=== PATIENT | male | born 1965 | race African-American/Black ===

== ENCOUNTER 2016-07-22 20:13 | Inpatient (IN) | payer OTHER ==
[~2016-07-22] VITALS: Ht 182.9 cm; Wt 81.6 kg
[~2016-07-22 20:13] MED LIST: AMLODIPINE BESY1 T23 PO; AMLODIPINE-ATO1 EA10 PO; AMOXICILLIN875 M1 PO; AUGMENTIN 875-1 EACH PO; BENTYL20 M1 PO; BENTYL20 MG PO; DOCUSATE SODIU100 MG PO; ENDOCET 325 MG-1 TA1 PO; GLUCOPHAGE1000 M1 PO; GLYBURIDE5 M1 PO; INVOKANA300 M1 PO; LISINOPRIL20 M1 PO; MIRALAX119 GM PO; OMEPRAZOLE20 M2 PO; PERCOCET 325 MG1 TA2 PO; PERCOCET 5-3251 EACH PO; SENNA8.6 M3 PO; ULTRAM50 M1 PO; VITAMIN E400 IU PO; ZOFRAN ODT4 MG PO; ZOFRAN ODT4 MG SL; ZOFRAN4 M2 SL
--- NOTE | 2016-07-22 20:51 | NUR ---
PT TO ED C/O SHARP ABD PIAN THAT IS MID AND ON LEFT SIDE OF ABD. PMH OF GALL BLADDER REMOVAL AND PANCREATITIS. STATES ATE A SANDWHICH WITH JALOPENOS 4-5 DAYS AND PAIN STARTED THEM. HAS NOT VOMITTED IN 3-4 DAYS, DENIES NAUSEA AT THIS TIME. DENIES UTI S/S
--- NOTE | 2016-07-22 22:03 | ED GI/GU/ABDOMINAL COMPLAINT ---
History of Present Illness General Chief Complaint: General Adult Stated Complaint: PT HAS STOMACH PAINS Source: patient Exam Limitations: no limitations Vital Signs & Intake/Output Vital Signs & Intake/Output Vital Signs Date Time Temp Pulse Resp B/P Pulse O2 O2 Flow FiO2 Ox Delivery Rate 07/22 2320 97.4 82 18 176/88 95 Room Air 07/22 2051 158/84 07/22 2045 97.0 88 18 170/105 98 Room Air ED Intake and Output 07/23 0000 07/22 1200 Intake Total 1000 Output Total Balance 1000 Intake, IV 1000 Patient 210 lb Weight Allergies Coded Allergies: ibuprofen (HURTS STOMACH 07/22/16) Reconcile Medications Amlodipine/Atorvastatin (Amlodipine-Atorvast 10-40 MG) 1 EACH TABLET 1 TAB PO DAILY BP/CHOLESTEROL (Reported) Canagliflozin (Invokana) (Unknown Strength) TABLET (Unknown Dose) PO DAILY UNKNOWN (Reported) Glyburide 5 MG TABLET 1 TAB PO DAILY DM (Reported) Lisinopril 20 MG TABLET 1 TAB PO DAILY blood pressure (Reported) Metformin HCl (Glucophage) 1,000 MG TABLET 1 TAB PO BID DM (Reported) Vitamin E Mixed (Vitamin E) (Unknown Strength) CAPSULE (Unknown Dose) PO DAILY SUPPLEMENT (Reported) Triage Note: PT TO ED C/O SHARP ABD PIAN THAT IS MID AND ON LEFT SIDE OF ABD. PMH OF GALL BLADDER REMOVAL AND PANCREATITIS. STATES ATE A SANDWHICH WITH JALOPENOS 4-5 DAYS AND PAIN STARTED THEM. HAS NOT VOMITTED IN 3-4 DAYS, DENIES NAUSEA AT THIS TIME. DENIES UTI S/S Triage Nurses Notes Reviewed? yes Duration: day(s):, waxing and waning Timing: recent history Quality/Severity: burning, cramping Location: epigastric Radiation: no radiation Activities at Onset: none Prior Abdominal Problems: similar symptoms Modifying Factors: Worsens With: palpation. Associated Symptoms: abdominal pain, nausea/vomiting HPI: 51yo gentleman with mid and left lateral abdominal pain x 5 days. He notes that the discomfort began after eating jalapeno and steak sandwich. He notes loose stool mild nausea, no vomiting. He notes that he does not drink alcohol. He notes this feels similar to a prior episode of pancreatitis. He is otherwise well has no chest pain shortness of breath fever chills dyspnea. Past History Travel History Traveled to [place] past 21 day No Medical History Any Pertinent Medical History? see below for history Neurological: NONE EENT: NONE Cardiovascular: hypertension, hyperlipidemia Respiratory: NONE Gastrointestinal: pancreatitis Hepatic: cholecystitis, hepatitis C Renal: NONE Musculoskeletal: NONE Psychiatric: NONE Endocrine: diabetes Blood Disorders: NONE Cancer(s): NONE FIELD REVIEWER/Reproductive: NONE History of MRSA: No History of VRE: No History of CDIFF: No Surgical History Surgical History: cholecystectomy Psychosocial History Who do you live with Spouse Services at Home None What is your primary language Dominican Tobacco Use: Current Daily Use Daily Tobacco Use Amount/Type: => 5 Cigarettes daily ETOH Use: denies use Illicit Drug Use: denies illicit drug use Family History Family History, If Any: MOTHER FH: diabetes mellitus FH: myocardial infarction FHx: brain cancer BROTHER FH: myocardial infarction Hx Contributory? No Review of Systems Review of Systems Constitutional: Reports: no symptoms. EENTM: Reports: no symptoms. Respiratory: Reports: no symptoms. Cardiovascular: Reports: no symptoms. GI: Reports: no symptoms. Genitourinary: Reports: no symptoms. Musculoskeletal: Reports: no symptoms. Skin: Reports: no symptoms. Neurological/Psychological: Reports: no symptoms. Hematologic/Endocrine: Reports: no symptoms. Immunologic/Allergic: Reports: no symptoms. All Other Systems: Reviewed and Negative Physical Exam Physical Exam General Appearance: well developed/nourished, mild distress Head: atraumatic, normal appearance, active bleeding Eyes: Bilateral: normal appearance. Ears, Nose, Throat, Mouth: hearing grossly normal Neck: normal inspection, supple, full range of motion Respiratory: normal breath sounds, chest non-tender, no respiratory distress, quiet respiration, lungs clear Cardiovascular: regular rate/rhythm Gastrointestinal: normal bowel sounds, soft, MILD MID EPIGASTRIC AND LEFT LATERAL TENDERNESS TO PALPATION. nO REBOUND OR GUARDING. Extremities: normal range of motion Neurologic/Psych: no motor/sensory deficits, awake, alert, oriented x 3 Skin: intact, normal color, warm/dry Core Measures ACS in differential dx? No Severe Sepsis Present: No Septic Shock Present: No Progress Differential Diagnosis: PANCREATITIS VERSUS GASTROENTERITIS VERSUS REFLUX VERSUS DIVERTICULITIS VERSUS OTHER Plan of Care: Orders Procedure Date/time Status Clear Liquid Diet 07/23 B Active HEPATIC FUNCTION PANEL 07/23 06 Active BASIC ELECTROLYTES PLUS BUN&CR 07/23 06 Active EKG 07/23 06 Active URINE DRUGS OF ABUSE 07/23 0205 Active ED Holding Orders 07/23 0120 Active Admit to inpatient 07/23 0120 Active Pathway - chart 07/23 0100 Active Pathway - chart 07/23 0059 Active House Staff 07/23 005 Active Patient Data 07/23 005 Active Code Status 07/23 0059 Active VTE Mechanical Prophylaxis 07/23 UNK Active Patient Data 07/22 2341 Active Add-on Test (ER Only) 07/22 2314 Active ETHANOL 07/22 221 Complete TROPONIN LEVEL 07/22 2115 Complete LIPASE 07/22 2115 Complete HEPATIC FUNCTION PANEL 07/22 2115 Complete CBC WITHOUT DIFFERENTIAL 07/22 2115 Complete BASIC METABOLIC PANEL 07/22 2115 Complete AMYLASE 07/22 2115 Complete EKG 07/22 2115 Active Current Medications Sig/Ross Start time Last Medication Dose Stop Time Status Admin Atorvastatin Calcium 40 MG 1700 07/23 1700 UNVr (Lipitor) Amlodipine Besylate 10 MG DAILY 07/23 1000 UNVr (Norvasc) Enoxaparin Sodium 40 MG DAILY 07/23 1000 UNVr (Lovenox) Lisinopril 20 MG DAILY 07/23 1000 UNVr (Prinivil) Pantoprazole Sodium 40 MG DAILY 07/23 1000 UNVr (Protonix) Sodium Chloride 1,000 ML ONCE ONE 07/23 0215 AC (Normal Saline 0.9%) 07/23 1214 Acetaminophen 650 MG Q6P PRN 07/23 0100 AC (Tylenol) Oxycodone HCl 10 MG Q6P PRN 07/23 0100 AC (Roxicodone) Oxycodone/ 1 TAB Q6P PRN 07/23 0100 AC Acetaminophen (Percocet) Laboratory Tests 07/22/165: Anion Gap 11, Estimated GFR > 60, BUN/Creatinine Ratio 11.4, Glucose 123 H, Calcium 9.5, Total Bilirubin 0.4, Direct Bilirubin 0.4, AST 32, ALT 61, Alkaline Phosphatase 65, Troponin I < 0.01, Total Protein 7.5, Albumin 4.3, Amylase 181 H, Lipase 1074 H, CBC w Diff NO MAN DIFF REQ, RBC 5.52, MCV 86.0, MCH 28.5, RDW 12.6, MPV 8.5, Gran % 45.9, Lymphocytes % 46.4, Monocytes % 5.0, Eosinophils % 2.3, Basophils % 0.4, Absolute Granulocytes 4.3, Absolute Lymphocytes 4.3 H, Absolute Monocytes 0.5, Absolute Eosinophils 0.2, Absolute Basophils 0, PUBS MCHC 33.2, Serum Alcohol < 10.0 Diagnostic Imaging: Viewed by Me: CT Scan. Discussed w/RAD: CT Scan. Radiology Impression: ABDOMEN AND PELVIC cat SCAN- NO ACUTE ILLNESS. fULL REPORT BELOW Initial ED EKG: normal axis, normal intervals, normal p-waves, normal QRS complex, normal sinus rhythm Comments: PATIENT: JEREMY STRANGE PRESENT AGE: 51 PATIENT ACCOUNT NO: [id number] : 64 LOCATION: [facility] ORDERING PHYSICIAN: PAVEL STILES MD SERVICE DATE: 07/22/16 EXAM TYPE: CAT - CT ABD & PELVIS W/O IV CONTRAS EXAMINATION: CT ABDOMEN AND PELVIS WITHOUT CONTRAST CLINICAL INFORMATION: Left lateral mid epigastric pain. Concern for diverticulitis COMPARISON: CT scan abdomen pelvis 11/08/2015 TECHNIQUE: Multidetector volumetric imaging was performed from the superior aspect of the liver through the pubic symphysis. Sagittal and coronal reformatted images were obtained on the technologist's workstation. No oral or intravenous contrast. DLP: 386.13 mGy-cm FINDINGS: LUNG BASES: The visualized lung bases are unremarkable. LIVER, GALLBLADDER, AND BILIARY TREE: The liver is normal in size, shape, and attenuation. No focal hepatic lesion or biliary ductal dilatation is present. Status post cholecystectomy. Extrahepatic CBD measures 5 mm. No calcified stone within the ducts. PANCREAS: Unremarkable. SPLEEN: Unremarkable. ADRENAL GLANDS: Unremarkable. KIDNEYS AND URETERS: The kidneys are normal in size, shape, and attenuation. No hydronephrosis, hydroureter, or calculi seen. No perinephric stranding. BLADDER: Unremarkable. GASTROINTESTINAL TRACT: No acute change. No diverticula. No diverticulitis. No bowel wall thickening or edema. No bowel obstruction. Moderate volume of stool in the colon. The appendix is normal. The small bowel loops are normal. ABDOMINAL WALL: No significant hernia is appreciated. LYMPH NODES: Normal. VASCULAR: Unremarkable. PELVIC VISCERA: Prostate measures 4.9 cm transverse with small calcifications in the prostate. OSSEOUS STRUCTURES: Unremarkable. IMPRESSION: Normal CT scan abdomen pelvis. DICTATED BY: KESHA VAUGHAN MD DATE/TIME DICTATED:07/22/162232 MASTER COOK:RENY DATE/TIME TRANSCRIBED:07/22/162232 CONFIDENTIAL, DO NOT COPY WITHOUT APPROPRIATE AUTHORIZATION. <Electronically signed in Other Vendor System> SIGNED BY: KESHA VAUGHAN MD 07/22/168 Departure Departure Disposition: STILL A PATIENT Condition: Stable Clinical Impression Primary Impression: Pancreatitis Referrals: KUSUM KAPADIA MD (PCP/Family) Departure Forms: Customer Survey General Discharge Information Admission Note Spoke With: MARTINEZ RAMIREZ,DAVID Ashton Documentation of Exam: Documentation of any treatments & extenuating circumstances including Concerns Regarding Discharge (functional status, medication knowledge or non-compliance, living conditions, etc.) that warrant an admission rather than observation: PT WITH PANCREATITIS LIKELY OF MEDICAL ORIGIN. NO SIGN OF GALLSTONE PANCREATITIS, BENIGN LFT'S... .PT MERITS IV FLUIDS, IV PAIN MEDS, BOWEL REST, WOULD CONSIDER GI CONSULT.
[2016-07-22 22:27] LABS: ABSOLUTE BASOPHIL COUNT 0 /CUMM (0.0-0.2); ABSOLUTE EOSINOPHIL COUNT 0.2 /CUMM (0.0-0.7); ABSOLUTE GRANULOCYTE CT 4.3 /CUMM (1.4-6.5); ABSOLUTE MONOCYTE COUNT 0.5 /CUMM (0.10-0.60); BASOPHIL % 0.4 % (0.0-2.0); EOSINOPHIL % 2.3 % (0-5); GRANULOCYTE % 45.9 % (42.2-75.2); HEMATOCRIT 47.5 % (42-52); MEAN CORPUSCULAR HGB 28.5 PG (27.0-31.0); MEAN CORPUSCULAR HGB CONC 33.2 G/DL (33.0-37.0); MEAN PLATELET VOLUME 8.5 FL (7.4-10.4); PLATELET COUNT 205 /CUMM (130-400); RBC DISTRIBUTION WIDTH 12.6 % (11.5-14.5); RED BLOOD CELL CT 5.52 /CUMM (4.70-6.10); WHITE BLOOD CELL COUNT 9.3 /CUMM (4.8-10.8)
[2016-07-22 22:28] LABS: ABSOLUTE LYMPH COUNT 4.3 /CUMM (1.2-3.4)
[2016-07-22] MEDS ORDERED: VITAMIN E400 UNIT PO (22:37)
--- NOTE | 2016-07-22 22:41 | CT SCAN REPORT ---
EXAMINATION: CT ABDOMEN AND PELVIS WITHOUT CONTRAST CLINICAL INFORMATION: Left lateral mid epigastric pain. Concern for diverticulitis COMPARISON: CT scan abdomen pelvis 11/08/2015 TECHNIQUE: Multidetector volumetric imaging was performed from the superior aspect of the liver through the pubic symphysis. Sagittal and coronal reformatted images were obtained on the technologist's workstation. No oral or intravenous contrast. DLP: 386.13 mGy-cm FINDINGS: LUNG BASES: The visualized lung bases are unremarkable. LIVER, GALLBLADDER, AND BILIARY TREE: The liver is normal in size, shape, and attenuation. No focal hepatic lesion or biliary ductal dilatation is present. Status post cholecystectomy. Extrahepatic CBD measures 5 mm. No calcified stone within the ducts. PANCREAS: Unremarkable. SPLEEN: Unremarkable. ADRENAL GLANDS: Unremarkable. KIDNEYS AND URETERS: The kidneys are normal in size, shape, and attenuation. No hydronephrosis, hydroureter, or calculi seen. No perinephric stranding. BLADDER: Unremarkable. GASTROINTESTINAL TRACT: No acute change. No diverticula. No diverticulitis. No bowel wall thickening or edema. No bowel obstruction. Moderate volume of stool in the colon. The appendix is normal. The small bowel loops are normal. ABDOMINAL WALL: No significant hernia is appreciated. LYMPH NODES: Normal. VASCULAR: Unremarkable. PELVIC VISCERA: Prostate measures 4.9 cm transverse with small calcifications in the prostate. OSSEOUS STRUCTURES: Unremarkable. IMPRESSION: Normal CT scan abdomen pelvis.
--- NOTE | 2016-07-22 22:49 | NUR ---
SEEN BY ER IV MED LOCK EST RIGHT F/A 20 B/W SENT PATIENT TAKEN TO CT SCAN PATIENT RETURNED FROM CT IV 1000 ML NS AT BOLUS GIVEN; ZOFRAN 4 MG IVP GIVEN PROTONIX 40 MG IVP EKG PREFORMED GIVEN GI COCKTAIL PO
--- NOTE | 2016-07-22 23:25 | NUR ---
RE-EVAL BY ER MD MEDICATED W/ MORPHINE 4 MG IVP FOR PAIN
--- NOTE | 2016-07-22 23:49 | History & Physical ---
General Information and HPI Allergies/Medications Allergies: Coded Allergies: ibuprofen (HURTS STOMACH 07/22/16) Home Med list Amlodipine/Atorvastatin (Amlodipine-Atorvast 10-40 MG) 1 EACH TABLET 1 TAB PO DAILY BP/CHOLESTEROL (Reported) Canagliflozin (Invokana) (Unknown Strength) TABLET (Unknown Dose) PO DAILY UNKNOWN (Reported) Glyburide 5 MG TABLET 1 TAB PO DAILY DM (Reported) Lisinopril 20 MG TABLET 1 TAB PO DAILY blood pressure (Reported) Metformin HCl (Glucophage) 1,000 MG TABLET 1 TAB PO BID DM (Reported) Vitamin E Mixed (Vitamin E) (Unknown Strength) CAPSULE (Unknown Dose) PO DAILY SUPPLEMENT (Reported) Past History Travel History Traveled to [place] past 21 day No Medical History Neurological: NONE EENT: NONE Cardiovascular: hypertension, hyperlipidemia Respiratory: NONE Gastrointestinal: pancreatitis Hepatic: cholecystitis, hepatitis C Renal: NONE Musculoskeletal: NONE Psychiatric: NONE Endocrine: diabetes Blood Disorders: NONE Cancer(s): NONE MANAGER PARKING/Reproductive: NONE History of MRSA: No History of VRE: No History of CDIFF: No Surgical History Surgical History: cholecystectomy Past Family/Social History Family History Relations & Conditions if any MOTHER FH: diabetes mellitus FH: myocardial infarction FHx: brain cancer BROTHER FH: myocardial infarction Psychosocial History Services at Home: None ETOH Use: denies use Illicit Drug Use: denies illicit drug use Functional Ability ADLs Independent: dressing, eating, toileting, bathing. Ambulation: independent IADLs Independent: shopping, housework, finances, food prep, telephone, transportation , medication admin. Core Measures/Miscellaneous Severe Sepsis Severe Sepsis Present: No Septic Shock Septic Shock Present: No
--- NOTE | 2016-07-22 23:53 | NUR ---
SECOND LITER NS INFUSING ORDERED. PT REQUESTS TO STAY IN STREET CLOTHES AT THIS TIME
--- NOTE | 2016-07-23 02:20 | History & Physical ---
ESTEPHANIA LEE 07/23/16 0220: General Information and HPI MD Statement: I have seen and personally examined JEREMY STRANGE and documented this H&P. The patient is a 51 year old M who presented with a patient stated chief complaint of [substernal, abdominal pain and diarrhea]. Source of Information: patient Exam Limitations: no limitations History of Present Illness: Mr Strange is a 51-year-old Cambodian gentleman with a PMH of HTN, DM, HLD, hep C (untreated) who presents with complaints of 5 day duration epigastric and substernal discomfort. Symptoms started on Monday after he had a sandwich containing jalapeno peppers which he normally does not eat. A few hours after he reported severe burning discomfort in his substernal, epigastric and left upper abdomen regions. These symptoms persisted throughout the week despite self medication with Xanax, Maalox and increased amounts of fluid. He also reported associated loose bowel movements but denies any blood/tarry colored stools. He does report worsening abdominal discomfort with laying to his left side. ROS: Mild intermittent nausea. Denies fevers, chills, chest pain, palpitations, shortness of breath or cough. Patient does endorse daily tobacco use (6-7 cigarettes), frequent marijuana use. He denies any alcohol use in multiple years. Allergies/Medications Allergies: Coded Allergies: ibuprofen (HURTS STOMACH 07/22/16) Home Med list Amlodipine/Atorvastatin (Amlodipine-Atorvast 10-40 MG) 1 EACH TABLET 1 TAB PO DAILY BP/CHOLESTEROL (Reported) Canagliflozin (Invokana) (Unknown Strength) TABLET (Unknown Dose) PO DAILY UNKNOWN (Reported) Glyburide 5 MG TABLET 1 TAB PO DAILY DM (Reported) Lisinopril 20 MG TABLET 1 TAB PO DAILY blood pressure (Reported) Metformin HCl (Glucophage) 1,000 MG TABLET 1 TAB PO BID DM (Reported) Vitamin E Mixed (Vitamin E) (Unknown Strength) CAPSULE (Unknown Dose) PO DAILY SUPPLEMENT (Reported) Past History Travel History Traveled to [place] past 21 day No Medical History Neurological: NONE EENT: NONE Cardiovascular: hypertension, hyperlipidemia Respiratory: NONE Gastrointestinal: pancreatitis Hepatic: cholecystitis, hepatitis C Renal: NONE Musculoskeletal: NONE Psychiatric: NONE Endocrine: diabetes Blood Disorders: NONE Cancer(s): NONE COMMUNITY SUPPORT PROFESSIONAL/Reproductive: NONE History of MRSA: No History of VRE: No History of CDIFF: No Surgical History Surgical History: cholecystectomy Past Family/Social History Family History Relations & Conditions if any MOTHER FH: diabetes mellitus FH: myocardial infarction FHx: brain cancer BROTHER FH: myocardial infarction Psychosocial History Services at Home: None ETOH Use: denies use Illicit Drug Use: denies illicit drug use Functional Ability ADLs Independent: dressing, eating, toileting, bathing. Ambulation: independent IADLs Independent: shopping, housework, finances, food prep, telephone, transportation , medication admin. Review of Systems Review of Systems Constitutional: Reports: see HPI. EENTM: Reports: no symptoms. Cardiovascular: Reports: no symptoms. Respiratory: Reports: no symptoms. GI: Reports: see HPI. Genitourinary: Reports: no symptoms. Musculoskeletal: Reports: no symptoms. Exam & Diagnostic Data Last 24 Hrs of Vital Signs/I&O Vital Signs Date Time Temp Pulse Resp B/P Pulse O2 O2 Flow FiO2 Ox Delivery Rate 07/23 0318 98.1 88 18 180/94 07/23 0233 98.1 88 18 180/94 96 Room Air 07/22 2320 97.4 82 18 176/88 95 Room Air 07/22 2052 158/84 07/22 2046 97.0 88 18 170/105 98 Room Air Intake & Output 07/23 0800 07/23 0000 07/22 1600 Intake Total 1000 1000 Output Total Balance 1000 1000 Intake, IV 1000 1000 Patient 210 lb Weight Physical Exam General Appearance Alert, Cooperative, Mild abdominal disacomfort with movement in the bed Skin No Breakdown HEENT EOMI, Mucous Membr. moist/pink Neck Supple Lymphatic Cervical nl Cardiovascular Regular Rate, Normal S1, Normal S2 Lungs Normal Air Movement, Dimnished breath sounds in the basilar regions Abdomen Soft, Tenderness to palpation of the epigastric and LLQ Neurological Normal Speech, Normal Tone Extremities No Edema, Normal Pulses Vascular Pulses Symmetrical Last 24 Hrs of Labs/Geraldo: Laboratory Tests 07/22/165: Anion Gap 11, Estimated GFR > 60, BUN/Creatinine Ratio 11.4, Glucose 123 H, Calcium 9.5, Total Bilirubin 0.4, Direct Bilirubin 0.4, AST 32, ALT 61, Alkaline Phosphatase 65, Troponin I < 0.01, Total Protein 7.5, Albumin 4.3, Amylase 181 H, Lipase 1074 H, CBC w Diff NO MAN DIFF REQ, RBC 5.52, MCV 86.0, MCH 28.5, RDW 12.6, MPV 8.5, Gran % 45.9, Lymphocytes % 46.4, Monocytes % 5.0, Eosinophils % 2.3, Basophils % 0.4, Absolute Granulocytes 4.3, Absolute Lymphocytes 4.3 H, Absolute Monocytes 0.5, Absolute Eosinophils 0.2, Absolute Basophils 0, PUBS MCHC 33.2, Serum Alcohol < 10.0 Diagnostic Data EKG Results Sinus rhythm, HR 80 bpm. Consider left ventricular hypertrophy. QTC 443. GA interval 144 Assessment/Plan Assessment: 51-year-old Camb[place]ian gentleman with a PMH of HTN, DM, HLD, hep C (untreated), status post cholecystectomy who presents with complaints of 5 day duration epigastric and substernal burning discomfort that started 5 days ago after eating a sandwich containing jalapeno peppers. Symptoms persisted throughout the week despite supplementation with Xanax and Maalox. VS on admission: BP 1 7105, HR 80, RR 18, SPO2 98% on RA, T 97.0 Pertinent labs: CBC 9.3, H&H 15.7/47.5, platelets 205, sodium 137, potassium 3.9 , BUN/CR 8/0.7, glucose 123 Amylase: 181 Lipase: 1074 Serum alcohol: <10.0 Lactic acid: Pending CT abdomen pelvis: Normal CT scan abdomen pelvis. Problem list: 1. Abdominal discomfort: DDX gastritis, pancreatitis 2. Hypertension 3. Diabetes 4. History of untreated hep C 5. Hyperlipidemia 6. Tobacco dependence 7. Marijuana use 8. EKG pulse Plan: * Admit to general medicine * We'll start the patient on fluid resuscitation with normal saline at 100 mL an hour, Clear liquids and advance as tolerated. Trending lactic acid * IV PPI for GI prophylaxis * If recurrence of loose stools, send off for stool studies * Elevated blood pressure likely secondary to abdominal pain and fluid resuscitation. Amlodipine for BP control * Repeat EKG in the a.m. in the setting of short pause on admission EKG * Percocets for analgesia * Diet: Advance to consistent, history * Low-dose insulin sliding scale. Accu-Cheks * Follow-up lipid panel in the a.m * Nicotine patch as needed for tobacco dependence * DVT prophylaxis: Lovenox * CODE STATUS: Full code Patient was previously scheduled to follow-up with Dr. Gonzalez as an outpatient to establish treatment for hep C. Please provide referral prior to discharge As Ranked By This Provider Problem List: 1. Abdominal pain 2. Pancreatitis 3. Hypertension 4. Hyperlipidemia 5. Hepatitis C 6. Diabetes mellitus 7. Tobacco dependence Core Measures/Miscellaneous Acute Coronary Syndrome ACS Diagnosis: No Cerebrovascular Accident CVA/TIA Diagnosis: No Congestive Heart Failure CHF Diagnosis: No Venous Thromboembolism VTE Risk Factors: Age > 40 VTE Prophylaxis Ordered Inpt: Pharm- Lovenox No Mech VTE prophylaxis d/t: No contraindications No VTE Pharm Prophylaxis d/t: No contraindications VTE Diagnosis: No VTE Type: NONE VTE Confirmed by (Test): NONE Severe Sepsis Severe Sepsis Present: No Septic Shock Septic Shock Present: No Miscellaneous Documentation Attending Case Discussed With: KUSUM KAPADIA MD Primary Care Physician: KUSUM KAPADIA MD Patient sees these Specialists NA Level of Patient Care: General Medicine Resident Review Statement Resident Statement: examined this patient, discussed with actuarial intern, agreed with actuarial intern, reviewed EMR data (avail), discussed with nursing, reviewed images MARTINEZ RAMIREZ,[facility] 07/23/16 1158: Attending MD Review Statement Attending Statement Attending MD Statement: examined this patient, discuss w/resident/PA/DOUBLE BASS PLAYER, agreed w/resident/PA/DOUBLE BASS PLAYER, discussed with family, reviewed EMR data (avail), discussed with nursing, discussed with case mgmt, reviewed images, amended to note Attending Assessment/Plan: Seen and examined independently This is a gentleman with history of hypertension, diabetes, hep C, previous cholecystectomy, previous history of pancreatitis comes in with significant abdominal pain and discomfort. 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 difficile and culture Control blood pressure Follow-up with EKG Minimize narcotics Start aggressive bowel regimen Reduce nicotine to 14 mg If his pain improves we will discharge him tomorrow Check his blood work and amylase lipase tomorrow Patient appears euvolemic Patient would require treatment for hep C and evaluation for cirrhosis
--- NOTE | 2016-07-23 02:36 | NUR ---
PT EVALUATED BY HOUSE STAFF PT MEDICATED WITH 10 MG ROXICODONE FOR ABD PAIN 01/12. THIRD LITER NS INFUSING AT 100 ML/HR
--- NOTE | 2016-07-23 03:26 | NUR ---
REPORT GIVEN TO ARMANDO CALL
[2016-07-23 04:05] VITALS: BP 166/109; BP 166/90
[2016-07-23 07:52] VITALS: BP 130/72
--- NOTE | 2016-07-23 11:58 | Admission Certification ---
Admission Certification Certification Statement - As attending physician, I certify that at the time of - admission, based on clinical presentation, severity of - symptoms, need for further diagnostic testing and - therapeutic interventions, and risk of adverse outcomes - without in-hospital treatment, in my clinical assessment, - this patient requires an acute hospital stay for a minimum - of two nights or longer. I have also considered psychsocial - factors such as support system, advanced age, financial - issues, cognitive issues, and failed out-patient treatments, - past re-admission history, safety of patient, and lack of - compliance as applicable. Specific rationale supporting this admission is: SIg pancreatitis
[2016-07-23 15:53] VITALS: BP 142/82
[2016-07-24 00:07] VITALS: BP 150/94
[2016-07-24 08:04] VITALS: BP 140/88
[2016-07-24 08:43] LABS: ABSOLUTE BASOPHIL COUNT 0 /CUMM (0.0-0.2); ABSOLUTE EOSINOPHIL COUNT 0.2 /CUMM (0.0-0.7); ABSOLUTE GRANULOCYTE CT 1.7 /CUMM (1.4-6.5); ABSOLUTE LYMPH COUNT 2.7 /CUMM (1.2-3.4); ABSOLUTE MONOCYTE COUNT 0.2 /CUMM (0.10-0.60); BASOPHIL % 0.3 % (0.0-2.0); EOSINOPHIL % 3.2 % (0-5); GRANULOCYTE % 35.4 % (42.2-75.2); MEAN CORPUSCULAR HGB 28.4 PG (27.0-31.0); MEAN CORPUSCULAR HGB CONC 33.4 G/DL (33.0-37.0); MEAN CORPUSCULAR VOLUME 85.2 FL (80.0-94.0); MEAN PLATELET VOLUME 8.6 FL (7.4-10.4); PLATELET COUNT 182 /CUMM (130-400); RBC DISTRIBUTION WIDTH 12.6 % (11.5-14.5); RED BLOOD CELL CT 5.51 /CUMM (4.70-6.10); WHITE BLOOD CELL COUNT 4.8 /CUMM (4.8-10.8)
--- NOTE | 2016-07-24 09:37 | PN- Housestaff ---
Subjective Follow-up For: ABDOMINAL PAIN Subjective: Patient is seen and examined at bedside. She reports an overnight episode of nausea and vomiting (denies bloody vomitus) after dinner. Patient had just finished breakfast today when he was examined and he did not report any nausea vomiting today. Whenever he still endorses moderate abdominal pain which he localizes it around the epigastric area. Patient denies any melena, hematemesis , chest pain, palpitation, shortness of breath, fever, chills or dysuria. Review of Systems Constitutional: Reports: see HPI. Objective Last 24 Hrs of Vital Signs/I&O Vital Signs Date Time Temp Pulse Resp B/P Pulse O2 O2 Flow FiO2 Ox Delivery Rate 07/24 0916 83 140/88 07/24 0915 83 140/88 07/24 0804 97.9 83 20 140/88 95 Room Air 07/24 0007 97.6 74 20 150/94 97 Room Air 07/23 1553 97.8 70 20 142/82 97 Intake & Output 07/24 1600 07/24 0800 07/24 0000 Intake Total 120 240 Output Total Balance 120 240 Intake, Oral 120 240 Physical Exam General Appearance: Alert, Oriented X3, Cooperative Other Physical Findings: General Appearance Alert, Cooperative, Mild abdominal disacomfort with movement in the bed Skin No Breakdown HEENT EOMI, Mucous Membr. moist/pink Neck Supple Lymphatic Cervical nl Cardiovascular Regular Rate, Normal S1, Normal S2 Lungs Normal Air Movement, Dimnished breath sounds in the basilar regions Abdomen Soft, Tenderness to palpation of the epigastric and LLQ. No rebound tenderness noted. Neurological Normal Speech, Normal Tone Extremities No Edema, Normal Pulses Vascular Pulses Symmetrical Assessment/Plan Assessment: This is a 51-year-old [place] gentleman with a PMH of HTN, DM, HLD, hep C ( untreated), status post cholecystectomy who presents with complaints of 5 day duratinon of epigastric and substernal burning discomfort that started after eating a sandwich containing jalapeno peppers. Symptoms persisted throughout the week despite supplementation with Xanax and Maalox. VS on admission: BP 1 7105, HR 80, RR 18, SPO2 98% on RA, T 97.0 Pertinent labs: CBC 9.3, H&H 15.7/47.5, platelets 205, sodium 137, potassium 3.9 , BUN/CR 8/0.7, glucose 123 Amylase: 181 Lipase: 1074 Serum alcohol: <10.0 Lactic acid: Pending CT abdomen pelvis: Normal CT scan abdomen pelvis. Patient was then admitted for evaluation and management of possible gastritis versus pancreatitis. Problem list: 1. Abdominal discomfort: DDX gastritis, pancreatitis. However CT is unremarkable for any pancreatic etiology and his enzymes have significantly trended down. 2. Hypertension 3. Diabetes 4. History of untreated hep C 5. Hyperlipidemia 6. Tobacco dependence 7. Marijuana use 8. EKG pulse Plan: * Will continue patient on clear liquids and not advance diet as patient had episodes of vomiting last night. If patient continues to have episodes of vomiting or increased epigastric pain. Will obtain GI consult valuation of possible GI ulcers. * Will continue IV PPI for GI prophylaxis * Percocets for analgesia, will avoid NSAIDs * Low-dose insulin sliding scale. Accu-Cheks * continue 14 mg nicotine patch * Blood pressure currently controlled continue lisinopril and amlodipine * Patient needs outpatient evaluation for his history of hep C which was not treated, patient would definitely benefit from treatment such as HARVONI. We'll encourage patient to follow-up with Dr. Gonzalez as he was supposed to see him prior to this admission. Problem List: 1. Abdominal pain 2. Tobacco dependence Pain Ratin Pain Location: Epigastric and left lower quadrant Pain Goal: Remain pain free Pain Plan: Per pain pathway Tomorrow's Labs & Rationales: none
--- NOTE | 2016-07-24 11:15 | PN- Pulmonary ---
Subjective HPI/Critical Care Issues: Patient is seen and examined at bedside. he reports an overnight episode of nausea and vomiting (denies bloody vomitus) after dinner. Patient had breakfast today Whenever he still endorses moderate abdominal pain which he localizes it around the epigastric area. Patient denies any melena, hematemesis, chest pain, palpitation, shortness of breath, fever, chills or dysuria. Review of Systems Constitutional: Reports: see HPI. Objective Current Medications: Current Medications Sig/Ross Start time Last Medication Dose Route Stop Time Status Admin Acetaminophen 650 MG Q6P PRN 07/23 0100 AC PO Amlodipine Besylate 10 MG DAILY 07/23 0315 AC 07/24 PO 0915 Atorvastatin Calcium 40 MG 1700 07/23 1700 AC 07/23 PO 1734 Docusate Sodium 100 MG DAILY NEEDED PRN 07/23 1330 AC PO Enoxaparin Sodium 40 MG DAILY 07/23 1000 AC 07/24 SC 0913 Insulin Aspart 0 TIDAC 07/23 0800 07/24 SC 0838 Lisinopril 20 MG DAILY 07/23 1000 AC 07/24 PO 0916 Nicotine 14 MG DAILY 07/24 1000 AC 07/24 TOP 0921 Nicotine 21 MG DAILY 07/23 1000 DC 07/23 TOP 0933 Ondansetron HCl 4 MG ONCE ONE 07/23 2015 DC 07/23 IV 07/23 2016 2049 Oxycodone HCl 10 MG Q6P PRN 07/23 0100 AC 07/23 PO 2126 Oxycodone/ 1 TAB Q6P PRN 07/23 0100 07/23 Acetaminophen PO 1536 Pantoprazole Sodium 40 MG DAILY 07/23 1000 AC 07/24 IV 0910 Polyethylene Glycol 17 GM DAILY 07/23 1320 AC 07/24 PO 0916 Senna 187 MG AT BEDTIME 07/23 2200 AC 07/23 PO 2126 Sodium Chloride 1,000 ML ONCE ONE 07/23 0215 DC 07/23 IV 07/23 1214 0232 Laboratory Tests 07/24 07/23 07/23 0725 1342 0645 Chemistry Sodium (137 - 145 mmol/L) 137 137 Potassium (3.5 - 5.1 mmol/L) 4.1 4.1 Chloride (98 - 107 mmol/L) 101 102 Carbon Dioxide (22 - 30 mmol/L) 25 27 Anion Gap (5 - 16) 11 7 BUN (9 - 20 mg/dL) 7 L 5 L Creatinine (0.7 - 1.2 mg/dL) 0.6 L 0.7 Estimated GFR (>60 ml/min) > 60 > 60 BUN/Creatinine Ratio (7 - 25 %) 11.7 7.1 Total Bilirubin (0.2 - 1.3 mg/dL) 0.5 Direct Bilirubin (< 0.4 mg/dL) 0.4 AST (17 - 59 U/L) 54 ALT (21 - 72 U/L) 69 Alkaline Phosphatase (< 127 U/L) 53 Total Protein (6.3 - 8.2 g/dL) 6.2 L Albumin (3.5 - 5.0 g/dL) 3.4 L Triglycerides (<150 mg/dL) 127 Cholesterol (< 200 MG/DL) 62 LDL Cholesterol, Calc (65 - 129 mg/dL) 5 L HDL Cholesterol (40 - 60 mg/dL) 32 L Cholesterol/HDL Ratio (0.00 - 4.88 %) 2 Amylase (30 - 110 U/L) 95 Lipase (23 - 300 U/L) 116 Hematology CBC w Diff NO MAN DIFF REQ WBC (4.8 - 10.8 /CUMM) 4.8 RBC (4.70 - 6.10 /CUMM) 5.51 Hgb (14.0 - 18.0 G/DL) 15.7 Hct (42 - 52 %) 47.0 MCV (80.0 - 94.0 FL) 85.2 MCH (27.0 - 31.0 PG) 28.4 RDW (11.5 - 14.5 %) 12.6 Plt Count (130 - 400 /CUMM) 182 MPV (7.4 - 10.4 FL) 8.6 Gran % (42.2 - 75.2 %) 35.4 L Lymphocytes % (20.5 - 51.1 %) 56.5 H Monocytes % (1.7 - 9.3 %) 4.6 Eosinophils % (0 - 5 %) 3.2 Basophils % (0.0 - 2.0 %) 0.3 Absolute Granulocytes (1.4 - 6.5 /CUMM) 1.7 Absolute Lymphocytes (1.2 - 3.4 /CUMM) 2.7 Absolute Monocytes (0.10 - 0.60 /CUMM) 0.2 Absolute Eosinophils (0.0 - 0.7 /CUMM) 0.2 Absolute Basophils (0.0 - 0.2 /CUMM) 0 PUBS MCHC (33.0 - 37.0 G/DL) 33.4 Toxicology Urine Opiates Screen (>2000 NG/ML) 1463.00 Methadone Screen (>300 NG/ML) < 40 Barbiturate Screen (>200 NG/ML) < 60 Ur Phencyclidine Scrn (>25 NG/ML) < 6.00 Amphetamines Screen (>1000 NG/ML) < 100 U Benzodiazepines Scrn (>200 NG/ML) < 85 Urine Cocaine Screen (>300 NG/ML) < 50 Urine Cannabis Screen (>50 NG/ML) > 80.00 H 07/23 07/22 0420 2215 Chemistry Sodium (137 - 145 mmol/L) 137 Potassium (3.5 - 5.1 mmol/L) 3.9 Chloride (98 - 107 mmol/L) 99 Carbon Dioxide (22 - 30 mmol/L) 27 Anion Gap (5 - 16) 11 BUN (9 - 20 mg/dL) 8 L Creatinine (0.7 - 1.2 mg/dL) 0.7 Estimated GFR (>60 ml/min) > 60 BUN/Creatinine Ratio (7 - 25 %) 11.4 Glucose (65 - 99 mg/dL) 123 H Lactic Acid (0.7 - 2.1 mmol/L) 0.6 L Calcium (8.4 - 10.2 mg/dL) 9.5 Total Bilirubin (0.2 - 1.3 mg/dL) 0.4 Direct Bilirubin (< 0.4 mg/dL) 0.4 AST (17 - 59 U/L) 32 ALT (21 - 72 U/L) 61 Alkaline Phosphatase (< 127 U/L) 65 Troponin I (<0.11 ng/ml) < 0.01 Total Protein (6.3 - 8.2 g/dL) 7.5 Albumin (3.5 - 5.0 g/dL) 4.3 Amylase (30 - 110 U/L) 181 H Lipase (23 - 300 U/L) 1074 H Hematology CBC w Diff NO MAN DIFF REQ WBC (4.8 - 10.8 /CUMM) 9.3 RBC (4.70 - 6.10 /CUMM) 5.52 Hgb (14.0 - 18.0 G/DL) 15.7 Hct (42 - 52 %) 47.5 MCV (80.0 - 94.0 FL) 86.0 MCH (27.0 - 31.0 PG) 28.5 RDW (11.5 - 14.5 %) 12.6 Plt Count (130 - 400 /CUMM) 205 MPV (7.4 - 10.4 FL) 8.5 Gran % (42.2 - 75.2 %) 45.9 Lymphocytes % (20.5 - 51.1 %) 46.4 Monocytes % (1.7 - 9.3 %) 5.0 Eosinophils % (0 - 5 %) 2.3 Basophils % (0.0 - 2.0 %) 0.4 Absolute Granulocytes (1.4 - 6.5 /CUMM) 4.3 Absolute Lymphocytes (1.2 - 3.4 /CUMM) 4.3 H Absolute Monocytes (0.10 - 0.60 /CUMM) 0.5 Absolute Eosinophils (0.0 - 0.7 /CUMM) 0.2 Absolute Basophils (0.0 - 0.2 /CUMM) 0 PUBS MCHC (33.0 - 37.0 G/DL) 33.2 Toxicology Serum Alcohol (<10 MG/DL) < 10.0 Microbiology Date/Time Procedure - Status Source Growth 07/23 1313 Clostridium difficile Toxin A & B - COLB STOOL 07/23 1313 Stool Culture - COLB STOOL Vital Signs & I&O Last 24 Hrs of Vitals and I&O: Vital Signs Date Time Temp Pulse Resp B/P Pulse O2 O2 Flow FiO2 Ox Delivery Rate 07/24 0916 83 140/88 07/24 0915 83 140/88 07/24 0804 97.9 83 20 140/88 95 Room Air 07/24 0007 97.6 74 20 150/94 97 Room Air 07/23 1553 97.8 70 20 142/82 97 Intake & Output 07/24 1600 07/24 0800 07/24 0000 Intake Total 120 240 Output Total Balance 120 240 Intake, Oral 120 240 Impression/Plan Impression/Plan Impression/Plan: This is a gentleman with history of hypertension, diabetes, hep C, previous cholecystectomy, previous history of pancreatitis comes in with significant abdominal pain and discomfort. 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 difficile and culture if he has persistant diarrhea Control blood pressure Minimize narcotics Start aggressive bowel regimen Reduce nicotine to 14 mg If his pain improves we will discharge him tomorrow if not call GI Patient would require treatment for hep C and evaluation for cirrhosis
[2016-07-24 15:48] VITALS: BP 142/80
[2016-07-24 23:25] VITALS: BP 140/98
--- NOTE | 2016-07-25 07:06 | PN- Housestaff ---
Subjective Follow-up For: abdominal pain, nausea, vomiting Subjective: I saw and examined the patient this AM, he is alert and oriented in no distress, does not reports any abdominal pain or nausea/vomiting, has not had any bowel movement yet since admission, feels constipated and bloated. denies chest pain, palpitation, SOB. Review of Systems Constitutional: Denies: chills, fever, weakness. EENTM: Reports: no symptoms. Cardiovascular: Reports: no symptoms. Respiratory: Reports: no symptoms. Gastrointestinal: Reports: bloating, constipation. Denies: abdominal pain (discomfort +), diarrhea, melena, nausea, vomiting. Genitourinary: Reports: no symptoms. Musculoskeletal: Reports: no symptoms. Skin: Reports: no symptoms. Objective Last 24 Hrs of Vital Signs/I&O Vital Signs Date Time Temp Pulse Resp B/P Pulse O2 O2 Flow FiO2 Ox Delivery Rate 07/25 1051 78 186/92 07/25 1050 78 186/92 07/25 0817 97.6 83 20 142/80 96 Room Air 07/24 2325 20.0 74 20 140/98 97 07/24 1548 97.8 86 19 142/80 98 Intake & Output 07/25 1600 07/25 0800 07/25 0000 Intake Total 400 Output Total 1600 Balance -1200 Intake, Oral 400 Output, Urine 1600 Physical Exam General Appearance: Alert, Oriented X3, Cooperative, No Acute Distress Skin: No Rashes, No Significant Lesion HEENT: Atraumatic, EOMI Neck: Supple Cardiovascular: Regular Rate, Normal S1, Normal S2, No Murmurs Lungs: Clear to Auscultation, Normal Air Movement Abdomen: Normal Bowel Sounds, Soft, No Tenderness Neurological: Normal Speech, Normal Tone Extremities: No Clubbing, No Cyanosis, No Edema, Normal Pulses, No Tenderness/ Swelling Vascular: Pulses Symmetrical Current Medications: Current Medications Sig/Ross Start time Last Medication Dose Route Stop Time Status Admin Acetaminophen 650 MG Q6P PRN 07/23 0100 AC PO Amlodipine Besylate 10 MG DAILY 07/23 0315 AC 07/25 PO 1050 Atorvastatin Calcium 40 MG 1700 07/23 1700 AC 07/24 PO 1655 Bisacodyl 10 MG ONCE ONE 07/25 1145 UNVr ND 07/25 1146 Docusate Sodium 100 MG DAILY NEEDED PRN 07/23 1330 AC 07/25 PO 1059 Enoxaparin Sodium 40 MG DAILY 07/23 1000 AC 07/25 SC 1051 Insulin Aspart 0 TIDAC 07/23 0800 AC 07/24 SC 1211 Lisinopril 20 MG DAILY 07/23 1000 AC 07/25 PO 1051 Nicotine 14 MG DAILY 07/24 1000 AC 07/25 TOP 1051 Oxycodone HCl 10 MG Q6P PRN 07/23 0100 AC 07/23 PO 2126 Oxycodone/ 1 TAB Q6P PRN 07/23 0100 AC 07/24 Acetaminophen PO 1951 Pantoprazole Sodium 40 MG BID 07/24 2200 AC 07/25 IV 1051 Pantoprazole Sodium 40 MG DAILY 07/23 1000 DC 07/24 IV 0910 Polyethylene Glycol 17 GM DAILY 07/23 1320 AC 07/25 PO 1051 Senna 187 MG AT BEDTIME 07/23 2200 AC 07/24 PO 2259 Assessment/Plan Assessment: This is a 51-year-old [place] gentleman with a PMH of HTN, DM, HLD, hep C ( untreated), status post cholecystectomy who presents with complaints of 5 day duratinon of epigastric and substernal burning discomfort that started after eating a sandwich containing jalapeno peppers. Symptoms persisted throughout the week despite supplementation with Xanax and Maalox. VS on admission: BP 1 7105, HR 80, RR 18, SPO2 98% on RA, T 97.0 Pertinent labs: CBC 9.3, H&H 15.7/47.5, platelets 205, sodium 137, potassium 3.9 , BUN/CR 8/0.7, glucose 123 Amylase: 181 Lipase: 1074 Serum alcohol: <10.0 Lactic acid: Pending CT abdomen pelvis: Normal CT scan abdomen pelvis. Patient was then admitted for evaluation and management of possible gastritis versus pancreatitis. Problem list: 1. Abdominal discomfort: possibly due to gastritis and mild acute pancreatitis. However CT is unremarkable for any pancreatic etiology and his enzymes have significantly trended down. 2. Hypertension 3. Diabetes 4. History of untreated hep C 5. Hyperlipidemia 6. Tobacco dependence 7. Marijuana use Plan: * We advanced his diet to regular (CC2) and he has been tolerating well. * Will continue PPI for GI prophylaxis, switched to PO * Tylenol for pain, will avoid NSAIDs * Low-dose insulin sliding scale. Accu-Cheks * Continue 14 mg nicotine patch * Blood pressure currently controlled continue lisinopril and amlodipine * Patient needs outpatient evaluation for his history of hep C which was not treated, patient would definitely benefit from treatment such as HARVONI. We'll encourage patient to follow-up with Dr. Gonzalez as he was supposed to see him prior to this admission. * Added Suppository Dulcolax to bowel regimen, due to constipation, advised the patient to take enough fluids, high fiber diet, daily exercise. Problem List: 1. Pancreatitis 2. Hepatitis C 3. Hyperlipidemia Pain Ratin Pain Location: no pain Pain Goal: Pain 4 or less Pain Plan: mild pp Tomorrow's Labs & Rationales: none
[2016-07-25 08:17] VITALS: BP 142/80
[2016-07-25 10:51] VITALS: BP 186/92
[2016-07-25] MEDS ORDERED: OMEPRAZOLE40 M1 PO (13:12)
--- NOTE | 2016-07-25 13:17 | Patient Discharge Instructions ---
Discharge Instructions General Discharge Information You were seen/treated for: mild acute pancreatitis possible gastritis Special Instructions: Please follow up with Dr. Gonzalez within a week of dicharge regading treatment plans for hepatitis C virus. Please follow up with PCP within 1-2 weeks of discharge. Diet Recommended Diet: Diabetic Activity Activity Self Limited: Yes Acute Coronary Syndrome Inclusion Criteria At DC or during hospital stay patient has or had the following: ACS DIAGNOSIS No Discharge Core Measures Meds if any: Prescribed or Continued at Discharge Meds if any: NOT Prescribed or Continued at Discharge Congestive Heart Failure Inclusion Criteria At DC or during hospital stay patient has or had the following: CHF DIAGNOSIS No Discharge Core Measures Meds if any: Prescribed or Continued at Discharge Meds if any: NOT Prescribed or Continued at Discharge Cerebrovascular accident Inclusion Criteria At DC or during hospital stay patient has or had the following: CVA/TIA Diagnosis No Discharge Core Measures Meds if any: Prescribed or Continued at Discharge Meds if any: NOT Prescribed or Continued at Discharge Venous thromboembolism Inclusion Criteria VTE Diagnosis No VTE Type NONE VTE Confirmed by (Test) NONE Discharge Core Measures - Per Current guidelines, there needs to be overlap - treatment for the first 5 days of Warfarin therapy. - If discharged on Warfarin prior to 5 days of - overlap therapy, the patient will need to be - assessed for post discharge needs including - *Post discharge parental anticoagulation - *Warfarin and/or parental anticoagulation education - *Follow up date to check INR post discharge At least 5 days overlap therapy as Inpatient No Meds if any: Prescribed or Continued at Discharge Note: Overlap Therapy is Warfarin and Anticoagulant Meds if any: NOT Prescribed or Continued at Discharge
--- NOTE | 2016-07-25 13:19 | Discharge Summary ---
See Addendum Visit Information Visit Dates Admission Date: 07/23/16 Discharge Date: 07/25/16 Hospital Course Course Attending Physician: KUSUM KAPADIA MD Primary Care Physician: KANG RAMIREZ,KUSUM Hospital Course: 51-year-old [place] gentleman with a PMH of HTN, DM, HLD, hep C (untreated), status post cholecystectomy who presents with complaints of 5 day duration epigastric and substernal burning discomfort that started 5 days ago after eating a sandwich containing jalapeno peppers. Symptoms persisted throughout the week despite supplementation with Xanax and Maalox. VS on admission: BP 1 7105, HR 80, RR 18, SPO2 98% on RA, T 97.0 Pertinent labs: CBC 9.3, H&H 15.7/47.5, platelets 205, sodium 137, potassium 3.9 , BUN/CR 8/0.7, glucose 123 Amylase: 181 Lipase: 1074 Serum alcohol: <10.0 Lactic acid: Pending CT abdomen pelvis: Normal CT scan abdomen pelvis. Problem list: Problem list: 1. Abdominal discomfort: DDX gastritis, pancreatitis 2. Hypertension 3. Diabetes 4. History of untreated hep C 5. Hyperlipidemia 6. Tobacco dependence 7. Marijuana use 8. EKG pause Hospital course: 1. Abdominal discomfort: DDX gastritis, pancreatitis * Unremarkable CT abdomen and pelvis * Gradually advance diet, fluid hydration with normal saline, GI prophylaxis with IV Protonix which was transitioned to by mouth prior to discharge * Analgesia with Percocets 2. Hypertension * Continue the patient's home dose of amlodipine for BP control 3. Diabetes * Held glyburide and metformin. Low-dose sliding scale with good sugar control 4. History of untreated hep C * Recommendations provided to the patient to follow-up with Dr. Gonzalez once discharged 5. Hyperlipidemia * Triglycerides 127, cholesterol 62, LDL 5, HDL 32 6. Tobacco dependence * Nicotine patch for control 7. Marijuana use * Advised against continued substance abuse Allergies: Coded Allergies: ibuprofen (HURTS STOMACH 07/22/16) Disposition Summary Disposition Principal Diagnosis: Acute pancreatitis/gastritis Additional Diagnosis: Elevated blood pressure Discharge Disposition: home or self care Discharge Instructions General Discharge Information Code Status: Full Code Patient's Diet: Consistent carbohydrate Patient's Activity: As tolerated Follow-Up Instructions/Appts: Please follow-up with the PCP within one week after discharge. Please follow-up with the locomotive observer Dr. Gonzalez within 1 week after discharge. Please take all medications as directed. Medications at Discharge Discharge Medications: Continue taking these medications: Metformin HCl (Glucophage) 1,000 MG TABLET 1 Tablet ORAL TWICE DAILY Comments: PER PT Glyburide (Glyburide) 5 MG TABLET 1 Tablet ORAL DAILY Comments: PER PT Lisinopril (Lisinopril) 20 MG TABLET 1 Tablet ORAL DAILY Comments: Last Taken: 11/15/15 Time: 10 AM Canagliflozin (Invokana) (Unknown Strength) TABLET Unknown Dose ORAL DAILY Comments: PER PT CANT AFFORD Amlodipine/Atorvastatin (Amlodipine-Atorvast 10-40 MG) 1 EACH TABLET 1 Tablet ORAL DAILY Qty = 30 Comments: Last Taken: 11/15/15 Time: 10 AM Vitamin E Mixed (Vitamin E) (Unknown Strength) CAPSULE Unknown Dose ORAL DAILY Comments: PER PT Start taking the following new medications: Omeprazole (Omeprazole) 40 MG CAPSULE.DR 1 Capsule ORAL DAILY Qty = 30 No Refills Acetaminophen (Acetaminophen) 500 MG TABLET 1 Tablet ORAL EVERY SIX HOURS as needed for pain Qty = 30 No Refills Copies To: JACKELIN KAPADIA MD, MD,GORDON
[2016-07-25] MEDS ORDERED: ACETAMINOPHEN500 M4 PO (15:49)
== END 2016-07-25 15:45 | DRG 440 ==
LOC: ENRESERVDT → ENRESERVTM → ERH 20:13 → ENPENDDIS 07-23 01:20 → 2NB 07-23 01:20 → ERHI 07-23 01:20 → 2NB 07-23 03:33
PROVIDERS: Internal Medicine; Ophthalmology; Pediatrics; ADMIT Internal Medicine
DX: K85.90 Acute pancreatitis without necrosis or infection, unspecified (principal); K74.0 Hepatic fibrosis; I10 Essential (primary) hypertension; K59.00 Constipation, unspecified; E11.9 Type 2 diabetes mellitus without complications; F17.200 Nicotine dependence, unspecified, uncomplicated; F12.90 Cannabis use, unspecified, uncomplicated; K29.70 Gastritis, unspecified, without bleeding; B19.20 Unspecified viral hepatitis C without hepatic coma; E78.5 Hyperlipidemia, unspecified; Z79.84 Long term (current) use of oral hypoglycemic drugs
CPT/HCPCS: 2NBP; 74176; 80307; 82436; 87045; 93005; 93010; 96361; 96374; 96375; G0480; J1650; J2405